=== PATIENT | male | born 1955 | race Caucasian/White ===

== ENCOUNTER 2023-10-04 12:20 | Emergency (ER) | payer SELFPAY ==
[~2023-10-04] VITALS: Ht 182.9 cm; Wt 88.0 kg
[2023-10-04 12:25] VITALS: BP 100/56; PULSE 92; RESP 18; TEMP 98.5; O2SAT 97
== END 2023-10-04 14:31 | disposition home or self-care (01) ==
LOC: ER 12:30
DX: T67.5XXA Heat exhaustion, unspecified, initial encounter (principal); I10 Essential (primary) hypertension; X58.XXXA Exposure to other specified factors, initial encounter; Y93.89 Activity, other specified; Y92.89 Other specified places as the place of occurrence of the external cause; Y99.8 Other external cause status
CPT/HCPCS: 99283